=== PATIENT | male | born 1975 | race African-American/Black ===

== ENCOUNTER 2017-11-20 19:38 | Emergency (ER) | payer SELFPAY ==
[2017-11-20] MEDS ORDERED: IBUPROFEN 600 MG TABLET ONE (19:58)
== END 2017-11-20 20:33 | disposition home or self-care (01) ==
LOC: EDH 19:38
DX: M67.432 Ganglion, left wrist (principal); R03.0 Elevated blood-pressure reading, without diagnosis of hypertension
CPT/HCPCS: 29125; 73110

== ENCOUNTER 2018-03-11 23:29 | Emergency (ER) | payer SELFPAY | END 2018-03-12 01:26 | disposition home or self-care (01) | LOC: EDH 23:29 | DX: S01.111A Laceration without foreign body of right eyelid and periocular area, initial encounter (principal); W26.8XXA Contact with other sharp object(s), not elsewhere classified, initial encounter; Y93.89 Activity, other specified; Y92.89 Other specified places as the place of occurrence of the external cause; Y99.8 Other external cause status | CPT/HCPCS: 12011; 70450; 70486 ==